=== PATIENT | female | born 1940 | race African-American/Black ===

== ENCOUNTER 2021-07-06 13:17 | Inpatient (IN) | payer MEDICARE, MEDICAID ==
[~2021-07-06] VITALS: Ht 157.5 cm; Wt 58.4 kg
[~2021-07-06 13:17] MED LIST: ALBUPOW26; ESOM20CA; LISI-716; NORVASC; TRAMADOL
[2021-07-06] MEDS ORDERED: PANTOPRAZOLE 40 MG/10 ML VIAL INJ IV ONE (13:45)
[2021-07-06] MEDS ORDERED: MORPHINE SULFATE 4 MG/ML SYR/VIAL IV ONE (13:45)
[2021-07-06] MEDS ORDERED: SODIUM CHLORIDE 0.9% 500 ML IVB ONE (13:45)
[2021-07-06] MEDS ORDERED: ONDANSETRON HCL 4 MG/2 ML VIAL IV ONE (13:45)
[2021-07-06 14:09] LABS: Eosinophils # (auto) 0.1 10 ^3/uL (0-0.8); Hemoglobin 14.4 g/dL (12.2-16.2)
[2021-07-06 14:11] LABS: Basophils # (auto) 0.1 10 ^3/uL (0-0.2); Basophils % (auto) 1.4 % (0.0-2.0); Eosinophils % (auto) 1.7 % (0.0-7.0); Hematocrit 41.7 % (36.0-46.0); Lymphocytes # (auto) 0.8 10 ^3/uL (0.4-5.4); Lymphocytes % (auto) 18.2 % (10.0-50.0); Mean Corpuscular Hemoglobin 35.1 pg (28.0-32.0); Mean Corpuscular Hgb Conc. 34.5 g/dL (32.0-36.0); Mean Corpuscular Volume 101.8 fL (80.0-100.0); Monocytes # (auto) 0.3 10 ^3/uL (0-1.3); Monocytes % (auto) 7.8 % (0.0-12.0); Neutrophils % (auto) 70.9 % (37.0-80.0); Nucleated Red Blood Cells % 0.1 %; Red Cell Distribution Width 13.1 % (11.8-14.3); White Blood Cell 4.2 10^3/uL (4.4-10.8)
[2021-07-06 14:38] LABS: Chloride 108 mmol/L (98-107); Potassium 3.3 mmol/L (3.5-5.1); Sodium 138 mmol/L (136-145)
[2021-07-06 14:55] LABS: Alanine Aminotransferase 23 U/L (13-56); Albumin 3.8 g/dL (3.4-5.0); Alkaline Phosphatase 78 U/L (45-117); Amylase 46 U/L (25-115); Anion Gap 4 (5-15); Aspartate Aminotransferase 18 U/L (15-37); BUN/Creatinine Ratio 14.9; Bilirubin, Total 0.5 mg/dL (0.2-1.0); Blood Urea Nitrogen 11 mg/dL (7-18); Calcium 9.6 mg/dL (8.5-10.1); Carbon Dioxide 26 mmol/L (21-32); GFR African American 97 mL/min; GFR Non-African American 80 mL/min; Glucose 117 mg/dL (74-106); Lipase 88 U/L (73-393); Total Protein 8.2 g/dL (6.4-8.2)
[2021-07-06] MEDS ORDERED: ALBUAER3 IN (16:58)
[2021-07-06] MEDS ORDERED: MELO1TAB56 PO (16:58)
[2021-07-06] MEDS ORDERED: AMLO-496 PO (16:58)
[2021-07-06] MEDS ORDERED: MULT1TAB65 PO (16:58)
[2021-07-06] MEDS ORDERED: TRAM50TA2 PO (16:58)
[2021-07-06] MEDS ORDERED: SOD CHL 0.9%/ KCL 20MEQ 1,000 ML IV SCH (19:30)
[2021-07-06] MEDS ORDERED: MORPHINE SULFATE INJECTION 2 MG/ML SYRG IV PRN (19:30)
[2021-07-06] MEDS ORDERED: NITROGLYCERIN 0.4 MG SL TAB SL PRN (19:30)
[2021-07-06] MEDS ORDERED: ONDANSETRON HCL 4 MG/2 ML VIAL IV PRN (19:30)
[2021-07-06] MEDS ORDERED: hydrALAZINE HCL 20 MG/ML VL IV PRN (19:30)
[2021-07-06 21:08] LABS: Urine Bacteria NONE SEEN /hpf (None Seen); Urine Blood Negative /uL (Negative); Urine Mucus FEW (None Seen); Urine Specific Gravity 1.019 (1.001-1.035); Urine WBC 1 /hpf (0 - 5)
[2021-07-06] MEDS ORDERED: PANTOPRAZOLE 40 MG/10 ML VIAL INJ IV SCH (22:00)
[2021-07-06 22:20] VITALS: BP 174/95
[2021-07-06] MEDS: BUDESONIDE (INHALATION) 0.5 MG/2 ML NEB NEB SCH (22:30)
[2021-07-06] MEDS: MORPHINE SULFATE INJECTION 2 MG/ML SYRG IV PRN (23:16)
[2021-07-06 23:51] VITALS: BP 175/92
[2021-07-07] MEDS ORDERED: LISI20TA28 PO (02:40)
[2021-07-07] MEDS ORDERED: ATOR10TA PO (02:40)
[2021-07-07] MEDS ORDERED: GABA100C9 PO (02:40)
[2021-07-07 05:00] VITALS: BP 135/61
[2021-07-07 07:05] LABS: INR 1.1 (0.9-1.15)
[2021-07-07 07:19] LABS: Potassium 3.4 mmol/L (3.5-5.1)
[2021-07-07 07:27] LABS: Albumin 3.3 g/dL (3.4-5.0); BUN/Creatinine Ratio 14.5; Bilirubin, Total 0.6 mg/dL (0.2-1.0); Calcium 8.7 mg/dL (8.5-10.1); Total Protein 7.5 g/dL (6.4-8.2)
[2021-07-07] MEDS: ALBUTEROL SULF 2.5 MG/0.5ML(0.5%) NEB SOLN NEB PRN (08:04)
[2021-07-07] MEDS: IPRATROPIUM BROM 0.5 MG/2.5ML INH SOL NEB PRN (08:04)
[2021-07-07] MEDS: BUDESONIDE (INHALATION) 0.5 MG/2 ML NEB NEB SCH ×2 (08:04→21:44)
[2021-07-07 09:00] VITALS: BP 137/74
[2021-07-07 09:16] LABS: Basophils # (auto) 0 10 ^3/uL (0-0.2); Basophils % (auto) 0.5 % (0.0-2.0); Eosinophils # (auto) 0.1 10 ^3/uL (0-0.8); Hemoglobin 13.8 g/dL (12.2-16.2); Lymphocytes # (auto) 0.9 10 ^3/uL (0.4-5.4); Monocytes # (auto) 0.3 10 ^3/uL (0-1.3); White Blood Cell 3.3 10^3/uL (4.4-10.8)
[2021-07-07 09:19] LABS: Hematocrit 39.7 % (36.0-46.0); Mean Corpuscular Hemoglobin 35.3 pg (28.0-32.0); Mean Corpuscular Hgb Conc. 34.7 g/dL (32.0-36.0); Mean Corpuscular Volume 101.9 fL (80.0-100.0); Monocytes % (auto) 9.6 % (0.0-12.0); Neutrophils % (auto) 60.9 % (37.0-80.0); Nucleated Red Blood Cells % 0.2 %; Red Cell Distribution Width 12.8 % (11.8-14.3)
[2021-07-07] MEDS: NICOTINE 14 MG/24HR TOPICAL PATCH TD SCH (10:00)
[2021-07-07] MEDS ORDERED: PANTOPRAZOLE 40 MG TAB PO ONE (10:45)
[2021-07-07 13:00] VITALS: BP 127/48
[2021-07-07 16:46] VITALS: BP 115/54
[2021-07-07 20:00] VITALS: BP 133/62
[2021-07-07] MEDS: PANTOPRAZOLE 40 MG TAB PO SCH (21:56)
[2021-07-07 22:00] VITALS: BP 133/62
[2021-07-08] VITALS (7 sets, daily range): BP systolic 125–156; BP diastolic 64–105
[2021-07-08] MEDS: MORPHINE SULFATE INJECTION 2 MG/ML SYRG IV PRN ×4 (04:49→17:31)
[2021-07-08] MEDS: NICOTINE 14 MG/24HR TOPICAL PATCH TD SCH (10:07)
[2021-07-08] MEDS: PANTOPRAZOLE 40 MG TAB PO SCH (10:07)
[2021-07-08 11:50] LABS: Basophils # (auto) 0 10 ^3/uL (0-0.2); Eosinophils # (auto) 0.1 10 ^3/uL (0-0.8); Hemoglobin 13.5 g/dL (12.2-16.2); Lymphocytes # (auto) 1.1 10 ^3/uL (0.4-5.4); Mean Corpuscular Hgb Conc. 33.7 g/dL (32.0-36.0); Mean Corpuscular Volume 102.2 fL (80.0-100.0); Monocytes # (auto) 0.4 10 ^3/uL (0-1.3); Nucleated Red Blood Cells % 0.1 %; White Blood Cell 3.8 10^3/uL (4.4-10.8)
[2021-07-08 11:54] LABS: Basophils % (auto) 0.7 % (0.0-2.0); Eosinophils % (auto) 2.7 % (0.0-7.0); Hematocrit 39.9 % (36.0-46.0); Lymphocytes % (auto) 29.1 % (10.0-50.0); Mean Corpuscular Hemoglobin 34.5 pg (28.0-32.0); Neutrophils # (auto) 2.2 10 ^3/uL (1.6-8.6); Neutrophils % (auto) 57.5 % (37.0-80.0); Red Cell Distribution Width 12.7 % (11.8-14.3)
[2021-07-08] MEDS ORDERED: PANT40T PO (14:24)
[2021-07-08] MEDS: IPRATROPIUM BROM 0.5 MG/2.5ML INH SOL NEB PRN (16:17)
[2021-07-08] MEDS: ALBUTEROL SULF 2.5 MG/0.5ML(0.5%) NEB SOLN NEB PRN (16:17)
[2021-07-08] MEDS: BUDESONIDE (INHALATION) 0.5 MG/2 ML NEB NEB SCH (16:17)
== END 2021-07-08 19:04 | disposition home or self-care (01) | DRG 241 ==
LOC: ER 13:17 → EDBD 13:17 → TELE 19:29 → TELE-WESTW 22:20
PROVIDERS: ADMIT Family Medicine; ATTEND Internal Medicine Nephrology
DX: K29.70 Gastritis, unspecified, without bleeding (principal); E11.65 Type 2 diabetes mellitus with hyperglycemia; Z20.822 Contact with and (suspected) exposure to COVID-19; E87.6 Hypokalemia; J45.909 Unspecified asthma, uncomplicated; F17.210 Nicotine dependence, cigarettes, uncomplicated; I10 Essential (primary) hypertension; M41.9 Scoliosis, unspecified; Z87.11 Personal history of peptic ulcer disease; G89.29 Other chronic pain; K27.9 Peptic ulcer, site unspecified, unspecified as acute or chronic, without hemorrhage or perforation; M54.50 Low back pain, unspecified
CPT/HCPCS: 36415; 71045; 76705; 80053; 81001; 82150; 83036; 83690; 83735; 84443; 84484; 85025; 85610; 87426; 93005; 94640; C9113; G0378; J2405